=== PATIENT | male | born 1940 | race Caucasian/White ===

== ENCOUNTER → 2016-06-13 | Outpatient (CLI) | payer MEDICARE ==
[~2016-06-13] MED LIST: ALDACTONE25 MG PO; AMBIEN5 MG PO; ANDROGEL75 GM TOP; CELEXA20 MG PO; CORTEF20 MG PO; ELAVIL25 MG PO; FLOMAX0.4 MG PO; HALFPRIN81 MG PO; LASIX40 MG PO; NITROSTAT0.4 MG SL; PLAVIX75 MG PO; PRAVACHOL40 MG PO; PRINIVIL10 MG PO; REQUIP1 MG PO; SYNTHROID100 MCG PO; THERA M PLUS T1 EACH PO; TRAZODONE HCL50 MG PO
== END | disposition short-term general hospital (02) ==
LOC: CLCARD 11:05
DX: R42 Dizziness and giddiness (principal); R06.09 Other forms of dyspnea; I34.0 Nonrheumatic mitral (valve) insufficiency; F17.200 Nicotine dependence, unspecified, uncomplicated

== ENCOUNTER → 2016-06-27 | Outpatient (CLI) | payer MEDICARE | END | disposition short-term general hospital (02) | LOC: CLCARD 09:32 | DX: I25.10 Atherosclerotic heart disease of native coronary artery without angina pectoris (principal); I25.5 Ischemic cardiomyopathy; I50.33 Acute on chronic diastolic (congestive) heart failure; N18.9 Chronic kidney disease, unspecified; I95.9 Hypotension, unspecified; E11.9 Type 2 diabetes mellitus without complications; Z79.82 Long term (current) use of aspirin; Z79.899 Other long term (current) drug therapy; Z95.1 Presence of aortocoronary bypass graft ==

== ENCOUNTER → 2016-07-11 | Outpatient (CLI) | payer MEDICARE | END | disposition short-term general hospital (02) | LOC: CLCARD 11:05 | DX: I50.42 Chronic combined systolic (congestive) and diastolic (congestive) heart failure (principal); I25.5 Ischemic cardiomyopathy; I25.10 Atherosclerotic heart disease of native coronary artery without angina pectoris; E78.5 Hyperlipidemia, unspecified; E11.22 Type 2 diabetes mellitus with diabetic chronic kidney disease; I12.9 Hypertensive chronic kidney disease with stage 1 through stage 4 chronic kidney disease, or unspecified chronic kidney disease; N18.3 Chronic kidney disease, stage 3 (moderate); Z98.890 Other specified postprocedural states ==

== ENCOUNTER → 2016-09-05 | Outpatient (CLI) | payer MEDICARE | END | disposition short-term general hospital (02) | LOC: CLCARD 13:28 | DX: Z45.02 Encounter for adjustment and management of automatic implantable cardiac defibrillator (principal); I25.5 Ischemic cardiomyopathy ==